=== PATIENT | male | born 1970 | race Caucasian/White ===

== ENCOUNTER 2018-08-28 15:08 | Emergency (ER) | payer OTHER ==
[~2018-08-28] VITALS: Ht 180.3 cm; Wt 65.8 kg
[~2018-08-28 15:08] MED LIST: IBUP-974 PO
[2018-08-28 15:23] VITALS: BP 127/84
--- NOTE | 2018-08-28 17:27 | NUR ---
PT TO ER BED 8
[2018-08-28] MEDS ORDERED: FLUORESCEIN OPTH STRIP 0.6 MG OP ONE (17:30)
[2018-08-28] MEDS ORDERED: TETRACAINE HCL/PF 0.5% OPTH 4 ML BTL OP ONE (17:30)
--- NOTE | 2018-08-28 17:30 | NUR ---
PT PRESENTS TO ED WITH C/O LEFT EYE METAL DUST FOREIGN BODY AND PAIN S/P GRINDING METAL. +FACE MASK. DENIES VISUAL CHANGES. PT STATES PAIN IS 4/10 AT THIS TIME. HX: DENIES RX: DENIES
--- NOTE | 2018-08-28 19:10 | NUR ---
PT PER EMT IRLANDA, AMBULATED TO BATHROOM.
[2018-08-28 19:23] VITALS: BP 127/84
--- NOTE | 2018-08-28 19:23 | NUR ---
Note undone in EDM - 08/28/18 at 1939 by [id number] Patient discharged with v/s stable. Verbal after care instructions given and explained by CLARISSA Montoya. Patient alert, oriented and verbalized understanding of instructions. Ambulatory with steady gait. All questions addressed prior to discharge. Patient advised to follow up with PMD. Rx of ERTHROMYCIN AND NORCO given. Patient educated on indication of medication including possible reaction and side effects. Opportunity to ask questions provided and answered. Pt left without written instructions and prescription. Will save and chart for patient if they return.
--- NOTE | 2018-08-28 19:34 | NUR ---
Patient discharged with v/s stable. Written and verbal after care instructions given and explained. Patient alert, oriented and verbalized understanding of instructions. Ambulatory with steady gait. All questions addressed prior to discharge. ID band removed. Patient advised to follow up with PMD. Rx of ERYTHROMYCIN AND NORCO given. Patient educated on indication of medication including possible reaction and side effects. Opportunity to ask questions provided and answered.
== END 2018-08-28 19:34 | disposition home or self-care (01) ==
LOC: MED 15:08
DX: T15.02XA Foreign body in cornea, left eye, initial encounter (principal); F17.210 Nicotine dependence, cigarettes, uncomplicated; Z79.1 Long term (current) use of non-steroidal anti-inflammatories (NSAID); W22.8XXA Striking against or struck by other objects, initial encounter; Y93.H9 Activity, other involving exterior property and land maintenance, building and construction; Y92.89 Other specified places as the place of occurrence of the external cause; Y99.8 Other external cause status
CPT/HCPCS: 65222; 99284

== ENCOUNTER 2023-02-09 08:26 | Emergency (ER) | payer OTHER ==
[~2023-02-09] VITALS: Ht 167.6 cm; Wt 59.0 kg
[2023-02-09 08:47] VITALS: BP 122/78; PULSE 86; RESP 18; TEMP 98; O2SAT 98
[2023-02-09] MEDS ORDERED: AMOX1TAB8 PO (09:14)
[2023-02-09] MEDS ORDERED: BACITRACIN OINT 500 UNITS/GM PKT TP ONE (09:15)
[2023-02-09 09:51] VITALS: BP 130/90; PULSE 84; RESP 18; TEMP 98; O2SAT 97
[2023-02-10] MEDS ORDERED: LIDOCAINE/EPI MPF 1%1:200000 30 ML VIAL INJ ONE (11:18)
== END 2023-02-09 09:40 | disposition home or self-care (01) ==
LOC: MED 08:26
DX: S61.230A Puncture wound without foreign body of right index finger without damage to nail, initial encounter (principal); W55.01XA Bitten by cat, initial encounter; Y93.89 Activity, other specified; Y92.89 Other specified places as the place of occurrence of the external cause; Y99.8 Other external cause status
CPT/HCPCS: 90471; 90715; 99283; J2001

== ENCOUNTER 2023-04-24 07:46 | Emergency (ER) | payer OTHER ==
[~2023-04-24] VITALS: Ht 180.3 cm; Wt 63.5 kg
[~2023-04-24 07:46] MED LIST changes: +AMOX1TAB8 PO
[2023-04-24 07:51] VITALS: BP 147/101; PULSE 92; RESP 18; TEMP 97; O2SAT 100
[2023-04-24 08:51] LABS: BASOPHILS # (AUTO) 0.1 K/uL (0.00-0.22); BASOPHILS % (AUTO) 0.7 % (0.0-2.0); EOSINOPHILS # (AUTO) 0.1 K/uL (0-0.4); EOSINOPHILS % (AUTO) 0.5 % (0.0-4.0); HEMATOCRIT 44.6 % (36-52); HEMOGLOBIN 15.8 g/dL (12.0-18.0); LYMPHOCYTES # (AUTO) 1.6 K/uL (2.0-11.5); MEAN CORPUSCULAR HEMOGLOBIN 33 pg (27-31); MEAN CORPUSCULAR HGB CONC 35 g/dL (33-37); MEAN CORPUSCULAR VOLUME 92.1 fL (80-94); MONOCYTES # (AUTO) 0.6 K/uL (0.8-1.0); MONOCYTES % (AUTO) 6.4 % (1.7-9.3); NEUTROPHILS # (AUTO) 7.5 K/uL (1.8-7.7); NEUTROPHILS % (AUTO) 76.4 % (42.2-75.2); PLATELET COUNT (AUTO) 231 K/uL (140-450); RED BLOOD CELL COUNT(AUTO) 4.84 MIL/uL (4.20-6.10); RED CELL DISTRIBUTION WIDTH 13.8 % (11.6-13.7); WHITE BLOOD COUNT (AUTO) 9.9 K/uL (4.8-10.8)
[2023-04-24 09:10] LABS: ANION GAP 11.7 (8-16); CALCIUM 9.1 mg/dL (8.5-10.1); CARBON DIOXIDE 27.9 mmol/L (21-32); CREATININE 0.8 mg/dL (0.6-1.3); POTASSIUM 3.6 mmol/L (3.5-5.1)
[2023-04-24 09:12] LABS: INR 1.11 (0.8-1.2); PARTIAL THROMBOPLASTIN TIME 27.6 secs (22-35.6); PROTHROMBIN TIME 11.6 secs (10.8-13.4)
[2023-04-24 09:40] VITALS: BP 131/90; PULSE 62; RESP 18; TEMP 97.3; O2SAT 100
== END 2023-04-24 09:40 | disposition home or self-care (01) ==
LOC: MED 07:46
DX: R00.2 Palpitations (principal); I10 Essential (primary) hypertension; F17.200 Nicotine dependence, unspecified, uncomplicated; Z79.899 Other long term (current) drug therapy
CPT/HCPCS: 36415; 71045; 80048; 83880; 84484; 85025; 85610; 85730; 93005; 99285

== ENCOUNTER 2023-06-06 04:10 | Emergency (ER) | payer OTHER ==
[~2023-06-06] VITALS: Ht 177.8 cm; Wt 63.5 kg
[2023-06-06 04:18] VITALS: BP 108/67; PULSE 95; RESP 18; TEMP 97.2; O2SAT 99
[2023-06-06 05:15] VITALS: BP 114/74; PULSE 65; RESP 18; O2SAT 98
[2023-06-06] MEDS: KETOROLAC 60 MG/2 ML VIAL IM ONE (06:15)
[2023-06-06 06:35] LABS: BASOPHILS # (AUTO) 0.1 K/uL (0.00-0.22); BASOPHILS % (AUTO) 0.6 % (0.0-2.0); EOSINOPHILS # (AUTO) 0.1 K/uL (0-0.4); EOSINOPHILS % (AUTO) 0.9 % (0.0-4.0); HEMATOCRIT 42.6 % (36-52); HEMOGLOBIN 14.7 g/dL (12.0-18.0); LYMPHOCYTES # (AUTO) 1.8 K/uL (2.0-11.5); LYMPHOCYTES % (AUTO) 13.9 % (20.5-51.1); MEAN CORPUSCULAR HEMOGLOBIN 32 pg (27-31); MEAN CORPUSCULAR HGB CONC 35 g/dL (33-37); MEAN CORPUSCULAR VOLUME 93.2 fL (80-94); MONOCYTES # (AUTO) 0.8 K/uL (0.8-1.0); MONOCYTES % (AUTO) 6.1 % (1.7-9.3); NEUTROPHILS # (AUTO) 10.1 K/uL (1.8-7.7); NEUTROPHILS % (AUTO) 78.5 % (42.2-75.2); PLATELET COUNT (AUTO) 221 K/uL (140-450); RED BLOOD CELL COUNT(AUTO) 4.57 MIL/uL (4.20-6.10); RED CELL DISTRIBUTION WIDTH 13.6 % (11.6-13.7); WHITE BLOOD COUNT (AUTO) 12.9 K/uL (4.8-10.8)
[2023-06-06 07:11] LABS: ANION GAP 12.9 (8-16); CALCIUM 8.9 mg/dL (8.5-10.1); CARBON DIOXIDE 26.1 mmol/L (21-32); CREATININE 0.7 mg/dL (0.6-1.3)
[2023-06-06 07:14] LABS: INR 1.04 (0.8-1.2); PARTIAL THROMBOPLASTIN TIME 28.3 secs (22-35.6); PROTHROMBIN TIME 10.9 secs (10.8-13.4)
[2023-06-06 07:17] LABS: D-DIMER < 100 ng/ml (0-400)
[2023-06-06 07:41] LABS: ALANINE AMINOTRANSFERASE 19 U/L (12-78); ALBUMIN 3.8 g/dL (3.4-5.0); ALKALINE PHOSPHATASE 78 U/L (50-136); ASPARTATE AMINOTRANSFERASE 11 U/L (15-37); BILIRUBIN,DIRECT 0.1 mg/dL (0.0-0.3); TOTAL BILIRUBIN 0.3 mg/dL (0.0-1.0); TOTAL PROTEIN, SERUM 6.4 g/dL (6.4-8.2)
[2023-06-06] MEDS ORDERED: MELO-176 PO (07:44)
[2023-06-06] MEDS ORDERED: CYCL-711 PO (07:44)
== END 2023-06-06 07:54 | disposition home or self-care (01) ==
LOC: MED 04:10
DX: M54.6 Pain in thoracic spine (principal); I10 Essential (primary) hypertension; Z79.1 Long term (current) use of non-steroidal anti-inflammatories (NSAID); Z79.899 Other long term (current) drug therapy
CPT/HCPCS: 36415; 71046; 80048; 80076; 83880; 84484; 85025; 85379; 85610; 85730; 96372; 99284; J1885